=== PATIENT | male | born 1955 ===

== ENCOUNTER → 2021-01-10 | Outpatient (CLI) | payer BC ==
--- NOTE | 2021-01-10 16:35 | KCIC ---
STUDY: MRI of the right knee without contrast INDICATION: Right knee pain. COMPARISON: Right knee radiographs 12/24/2020 TECHNIQUE: Multiplanar MR imaging of the right knee performed without the use of intravenous or intra -articular contrast. FINDINGS: Menisci: Complex tearing of the medial meniscus body and posterior horn to include a partial-thicknes s free edge radial tear at the posterior horn and free edge and oblique/undersurface tearing along th e mid to posterior body. Partially detached meniscal tissue along the posterior body/horn junction di splaced downward into the meniscotibial recess such as on image 12 series 8. Intact lateral meniscus. Cruciate ligaments: Intact. Collateral ligaments: Reactive edema along the MCL complex. The collateral ligaments remain intact. Tendons: Intact. Cartilage: Patellofemoral: High-grade chondrosis at the mid to lower aspect of the medial trochlea. Mild superfi cial patellar chondrosis. Lateral compartment: High-grade/full-thickness chondral defect at the proximal nonweightbearing later al femoral condyle measuring 9 mm AP by 4 mm transverse, image 18 series 6. Medial compartment: Scattered partial thickness weightbearing and posterior nonweightbearing medial c ompartment chondral loss Bones: No fracture or focally aggressive marrow signal abnormality. Miscellaneous: No significant knee joint effusion. Small Koenig's cyst but possibly with cystoscopy de compression given edema/fluid along the semimembranosus, image 3 series 4. IMPRESSION: 1. Complex tearing of the medial meniscus body and posterior horn as described above the report. The lateral meniscus is intact as are the cruciate and collateral ligaments. 2. 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 3. Edema/fluid along the inner margin of the semimembranosus which could be reactive to decompressio n of a Koenig's cyst. Electronically signed by: DELPHINE MANRIQUE MD (01/10/2021 4:33 PM) [facility]
== END ==
LOC: KCIC MRI 15:04
PROVIDERS: ATTEND Orthopaedic Surgery
DX: S83.241A Other tear of medial meniscus, current injury, right knee, initial encounter (principal); X58.XXXA Exposure to other specified factors, initial encounter; Y93.89 Activity, other specified; Y92.89 Other specified places as the place of occurrence of the external cause; Y99.8 Other external cause status
CPT/HCPCS: 73721